=== PATIENT | female | born 1965 | race American Indian/Alaskan Native ===

== ENCOUNTER 2017-11-15 09:48 | Day surgery (SDC) | payer BC ==
[~2017-11-15 09:48] MED LIST: WATER FOR IRRIG STERILE IR ONE
--- NOTE | 2017-11-15 10:24 | Anesthesia Consultation ---
Anesthesia Consult and Med Hx Date of service: 11/15/17 - Airway Anesthetic Teeth Evaluation: Poor, Partials (upper) ROM Head & Neck: Adequate Mental/Hyoid Distance: Adequate Mallampati Class: Class II Intubation Access Assessment: Probably Good - Pulmonary Exam CTA: Yes - Cardiac Exam Cardiac Exam: RRR - Pre-Operative Health Status ASA Pre-Surgery Classification: ASA3 Proposed Anesthetic Plan: MAC - Pulmonary Hx Smoking: Yes (20 years ) - Cardiovascular System Hx Hypertension: Yes - Endocrine Hx Thyroid Disease: Yes - Other Systems Hx Obesity: Yes
--- NOTE | 2017-11-15 10:24 | Anesthesia Day of Surgery ---
Anesthesia Day of Surgery - Day of Surgery Patient Examined: Yes Patient H&P Reviewed: Yes Patient is NPO: Yes
[2017-11-15] MEDS ORDERED: NACL 0.9% 1000 ML 1,000 ML IV SCH (11:00)
[2017-11-15] MEDS ORDERED: DIPRIVAN 10 MG/ML IV ONE ×2 (11:24→11:25)
--- NOTE | 2017-11-15 12:11 | Short Stay Summary ---
Short Stay Documentation Date of service: 11/15/17 Narrative H&P: The patient presents for her first screening colonoscopy. - History Past Medical History: hypertension, other (hypothyroidism) Past Surgical History: No surgical history Social history: no significant social history, no smoking, no alcohol abuse - Allergies and Medications Current Medications: Allergies No Known Allergies Allergy (Verified 11/15/17 10:50) Home Medications Medication Instructions Recorded Confirmed Last Taken Type Atenolol 50 mg PO DAILY 11/15/17 11/15/17 11/15/17 History Levothyroxine 0.1 mg PO DAILY 11/15/17 11/15/17 11/15/17 History Active Medications Sodium Chloride (Nacl 0.9% 1000 Ml) 1,000 mls @ 50 mls/hr IV DIRECT IRMA Last Admin: 11/15/17 11:10 Dose: 50 mls/hr - Physical exam General appearance: no acute distress, well-nourished Integumentary: no rash, no growths, no abnormal pigmentation HEENT: Atraumatic, PERRLA, EOMI, Mucous membr. moist/pink Lungs: Clear to auscultation, Normal air movement Breasts: deferred Heart: Regular rate, Normal S1, Normal S2, No murmurs Gastrointestinal: normoactive bowel sounds, no tenderness, no distended, no masses, no organomegaly Female Genitourinary: deferred Rectal Exam: normal exam-external/orifice, normal rectal tone, no mass Extremities: no ischemia, pulses intact, pulses symmetrical, No edema, normal temperature, Full ROM Neurological: Normal gait, Normal speech, Strength at 5/5 X4 ext, Normal tone, Sensation intact, Cranial nerves 3-12 NL - Brief post op/procedure progress note Date of procedure: 11/15/17 Findings: see dictated report. Estimated blood loss: none Pathology: list (rectal polyp) Specimen disposition: to lab Condition: stable - Disposition Condition at discharge: Good Disposition: DC-01 TO HOME OR SELFCARE - Discharge Diagnoses (1) Colon cancer screening Status: Acute Short Stay Discharge Plan Activity: other (no driving for 24 hours) Weight Bearing Status: Weight Bear as Tolerated Diet: regular Follow up with: ALMA JORDAN MD [Primary Care Provider] - 7 Days
--- NOTE | 2017-11-15 12:13 | Operative Report ---
Operative Report Operative Report: Date of procedure: 11/15/2017 Preprocedure diagnosis: Colon cancer screening, average risk. No prior studies. Post procedure diagnosis: 7 mm pedunculated rectal polyp. Procedure: Colonoscopy to the cecum with hot snare polypectomy Endoscopist: Dr. Cr Anesthesia: Monitored anesthesia care per anesthesia department Estimated blood loss: 0 Medications: Monitored anesthesia care. See separate report by anesthesia for details. After careful discussion of the nature and purpose of the procedure as well as details of the technique risks benefits and alternatives the patient gave consent. Please see recent history and physical from the office. The patient was placed in the left lateral decubitus position and medicated per anesthesia. A rectal exam was performed sphincter tone was normal there were no masses palpable. The [employer] 570 scope was passed transanally and advanced under continuous direct vision without difficulty to the cecum. The colon was well prepared. The cecum was normal. The ascending colon was normal and on forward and retroflexed views. The transverse colon, descending colon, and sigmoid colon were normal. The rectum revealed a 7 mm pedunculated polyp on a short stalk. The polyp was removed with snare cautery at the level of the stomach without difficulty. No bleeding was encountered. Otherwise the rectum was normal on forward and retroflexed views. The procedure was well-tolerated overall and the patient was observed in recovery. Conclusions: 7 mm pedunculated rectal polyp with a benign appearance. Plan: wait pathology. Repeat colonoscopy in 5 years. Signed electronically: Raghu Cr M.D.
[2017-11-15 12:58] VITALS: BP 114/71
== END 2017-11-15 09:49 | disposition home or self-care (01) ==
LOC: GIO 09:48
PROVIDERS: ATTEND Internal Medicine Gastroenterology
DX: Z12.11 Encounter for screening for malignant neoplasm of colon (principal); D12.8 Benign neoplasm of rectum; I10 Essential (primary) hypertension; E03.9 Hypothyroidism, unspecified; E66.9 Obesity, unspecified; F17.200 Nicotine dependence, unspecified, uncomplicated; Z79.899 Other long term (current) drug therapy; Z68.41 Body mass index [BMI] 40.0-44.9, adult
CPT/HCPCS: 45385; 81025; 88305; J2704

== ENCOUNTER 2018-03-13 08:12 | Outpatient (CLI) | payer BC | END 2018-03-13 08:13 | disposition home or self-care (01) | LOC: VAS 08:12 | PROVIDERS: ATTEND Internal Medicine | DX: R22.43 Localized swelling, mass and lump, lower limb, bilateral (principal); I10 Essential (primary) hypertension; E66.9 Obesity, unspecified; E03.9 Hypothyroidism, unspecified; F17.210 Nicotine dependence, cigarettes, uncomplicated | CPT/HCPCS: 93970 ==

== ENCOUNTER 2020-08-12 11:00 | Outpatient (CLI) | payer BC | END 2020-08-12 13:05 | disposition home or self-care (01) | LOC: SLR 11:00 | PROVIDERS: ATTEND Obstetrics & Gynecology Gynecologic Oncology | DX: G47.33 Obstructive sleep apnea (adult) (pediatric) (principal) | CPT/HCPCS: 95810 ==

== ENCOUNTER 2020-10-13 11:00 | Outpatient (CLI) | payer BC | END 2020-10-14 11:00 | disposition home or self-care (01) | LOC: SLR 11:00 | PROVIDERS: ATTEND Otolaryngology | DX: G47.33 Obstructive sleep apnea (adult) (pediatric) (principal) | CPT/HCPCS: 95811 ==